=== PATIENT | male | born 1990 | race Caucasian/White ===

== ENCOUNTER 2019-05-12 18:36 | Emergency (ER) | payer SELFPAY ==
[2019-05-12] MEDS ORDERED: NA CHLORIDE 0.9% 1,000 ML ONE ×2 (18:55→20:17)
[2019-05-12 19:12] LABS: Absolute Lymphocytes (CBC) 2.6 K/uL (0.7-4.9); Basophils % 0.7 % (0-1.3); Hematocrit 44.9 % (39.6-49.0); MPV 8.3 fL (7.6-11.3); RBC Red Blood Cell Count 4.89 M/uL (4.33-5.43)
[2019-05-12 19:13] LABS: Protime INR 1.02
[2019-05-12 19:16] LABS: Urine Blood NEGATIVE (NEG); Urine Glucose NEGATIVE (NEG); Urine Protein NEGATIVE (NEG); Urine Specific Gravity <1.005 (1.005-1.030)
[2019-05-12 19:24] LABS: Urine Bacteria <20 /HPF (NONE SEEN); Urine Culture Reflex Order REFLEXED; Urine RBC <5 /HPF (NONE SEEN)
[2019-05-12 19:27] LABS: Barbiturates NEGATIVE (NEGATIVE); Benzodiazepines NEGATIVE (NEGATIVE); Cocaine NEGATIVE (NEGATIVE); METHAMPHETAM POSITIVE (NEGATIVE); Methadone NEGATIVE (NEGATIVE); Opiates NEGATIVE (NEGATIVE); Phencyclidine NEGATIVE (NEGATIVE); THC Cannibis NEGATIVE (NEGATIVE)
--- NOTE | 2019-05-12 19:29 | RAD REPORT ---
EXAM DESCRIPTION: RAD - Chest Single View - 05/12/2019 7:05 pm CLINICAL HISTORY: Shortness of breath COMPARISON: None. TECHNIQUE: AP portable chest image was obtained 1901 hours . FINDINGS: Lungs are clear. Heart and vasculature are normal. No measurable pleural effusion and no p neumothorax. No acute bony abnormality seen. No acute aortic findings suspected. IMPRESSION: No acute cardiopulmonary process.
[2019-05-12 19:31] LABS: ALT/SGPT 37 U/L (12-78); AST/SGOT 17 U/L (15-37); Albumin 3.7 g/dL (3.4-5.0); Alkaline Phosphatase 47 U/L (45-117); BUN Blood Urea Nitrogen 12 mg/dL (7-18); Bicarbonate 23 mmol/L (21-32); Bilirubin Direct 0.2 mg/dL (0-0.2); Bilirubin Total 0.5 mg/dL (0.2-1.0); Glucose Level 100 mg/dL (74-106); NT PRO-BNP 41 pg/mL (<125); Potassium 3.8 mmol/L (3.5-5.1); Protein, Total 7.1 g/dL (6.4-8.2); Sodium Level 143 mmol/L (136-145); Troponin (Emerg Dept Use Only) < 0.02 ng/mL (0.0-0.045)
[2019-05-12] MEDS ORDERED: ALBUTEROL 2.5 MG/3 ML NEB SOL ONE (20:38)
[2019-05-12] MEDS ORDERED: IPRATROPIUM BROM 0.5MG/2.5ML ONE (20:38)
--- NOTE | 2019-05-12 21:41 | ER ---
Nurse's Notes [facility] Name: Ruben Branch Age: 29 yrs Sex: Male : 1990 Arrival Date: 05/12/2019 Time: 18:39 Bed 24 Private MD: Diagnosis: Adverse effect of amphetamines;Shortness of breath;Dizziness and giddiness Presentation: 05/12 18:47 Presenting complaint: EMS states: he feels like an electric shock in both legs, mg2 dizziness, shortness of breath , he had meth and marijuana 2 days ago. BGL- 132 mg/dl. Transition of care: patient was not received from another setting of care. Onset of symptoms was May 11, 2019. Risk Assessment: Do you want to hurt yourself or someone else? Patient reports no desire to harm self or others. Initial Sepsis Screen: Does the patient meet any 2 criteria? No. Patient's initial sepsis screen is negative. Does the patient have a suspected source of infection? No. Patient's initial sepsis screen is negative. Care prior to arrival: None. 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 - Social history:: Smoking status: Patient uses tobacco products, smokes one pack cigarettes per day. Patient uses street drugs, marijuana, Methamphetamine (Meth) Patient/guardian denies using alcohol. - Ebola Screening: : No symptoms or risks identified at this time. Screenin:52 Abuse screen: Denies threats or abuse. Denies injuries from another. Nutritional mg2 screening: No deficits noted. Tuberculosis screening: No symptoms or risk factors identified. Fall Risk IV access (20 points). Assessment: 19:15 General: Appears in no apparent distress. comfortable, Behavior is calm, cooperative. mg2 Pain: Denies pain. Neuro: Level of Consciousness is awake, alert, obeys commands, Oriented to person, place, time, situation. Neuro: Reports dizziness. Cardiovascular: Capillary refill < 3 seconds Patient's skin is warm and dry. Respiratory: Airway is patent Respiratory effort is even, unlabored, Respiratory pattern is regular, symmetrical. Respiratory: Reports shortness of breath. GI: No signs and/or symptoms were reported involving the gastrointestinal system. : No signs and/or symptoms were reported regarding the genitourinary system. EENT: No deficits noted. Derm: Skin is intact, is healthy with good turgor, Skin is pink, warm \T\ dry. normal. Musculoskeletal: Circulation, motion, and sensation intact. Capillary refill < 3 seconds. Vital Signs: 18:49 BP 123 / 73; Pulse 114; Resp 18; Temp 98.3(O); Pulse Ox 98% on R/A; Weight 127.01 kg; mg2 Height 6 ft. 2 in. (187.96 cm); Pain 0/10; 20:15 BP 126 / 80; Pulse 101; Resp 18; Pulse Ox 100% on R/A; mg2 21:27 BP 122 / 78; Pulse 92; Resp 18; Pulse Ox 100% on R/A; mg2 18:49 Body Mass Index 35.95 (127.01 kg, 187.96 cm) mg2 ED Course: 18:39 Patient arrived in ED. mg2 18:43 Sam Hinojosa PA is PHCP. cp 18:43 Sam Peoples MD is Attending Physician. cp 18:49 Triage completed. mg2 18:51 Arm band placed on. mg2 18:52 Tino Woods, SIMONE is Primary Nurse. mg2 18:52 No provider procedures requiring assistance completed. mg2 19:00 Inserted saline lock: 20 gauge in left forearm, using aseptic technique. Blood mg2 collected. 19:07 XRAY Chest (1 view) In Process Unspecified. EDMS 19:16 Patient has correct armband on for positive identification. lobby concierge on. Pulse mg2 ox on. NIBP on. Door closed. Warm blanket given. 21:52 IV discontinued, intact, bleeding controlled, No redness/swelling at site. Pressure mg2 dressing applied. Administered Medications: 19:08 Drug: NS 0.9% 1000 ml Route: IV; Rate: 1 bolus; Site: left antecubital; mg2 21:51 Follow up: Response: No adverse reaction; IV Status: Completed infusion; IV Intake: mg2 1000ml 20:29 Drug: NS 0.9% 1000 ml Route: IV; Rate: 1 bolus; Site: left forearm; mg2 21:51 Follow up: Response: No adverse reaction; IV Status: Completed infusion; IV Intake: mg2 1000ml 20:39 Drug: AtroVENT Aerosol 0.5 mg Route: Inhalation; mg2 21:50 Follow up: Response: No adverse reaction; Marked relief of symptoms mg2 20:40 Drug: Albuterol 2.5 mg Route: Inhalation; mg2 21:50 Follow up: Response: No adverse reaction; Marked relief of symptoms mg2 Intake: 21:51 IV: 1000ml; Total: 1000ml. mg2 21:51 IV: 1000ml; Total: 2000ml. mg2 Outcome: 21:40 Discharge ordered by . cp 21:52 Discharged to home ambulatory. mg2 21:52 Condition: stable 21:52 Discharge instructions given to patient, Instructed on discharge instructions, follow up and referral plans. medication usage, Demonstrated understanding of instructions, follow-up care, medications, Prescriptions given X 1. 21:53 Patient left the ED. mg2 Signatures: Dispatcher [employer] EDMS Sam Hinojosa PA PA cp [place], Michele RN RN mg2
--- NOTE | 2019-05-12 21:41 | EDPHYS ---
Physician Documentation [facility] Name: Ruben Branch Age: 29 yrs Sex: Male : 1990 Arrival Date: 05/12/2019 Time: 18:39 Bed 24 Private MD: ED Physician Sam Peoples HPI: 05/12 19:00 This 29 yrs old Male presents to ER via EMS with complaints of dizziness, cp shortness of breath. 19:00 The patient has shortness of breath with light activity. cp 19:00 Onset: The symptoms/episode began/occurred today. Duration: The symptoms are cp continuous. Associated signs and symptoms: Pertinent positives: dizziness, electric shock in legs, Pertinent negatives: chest pain, productive cough, fever, hemoptysis, visual changes. Severity of symptoms: in the emergency department the symptoms are unchanged despite home interventions. Patient admits to snorting methamphetamine yesterday. 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 - Social history:: Smoking status: Patient uses tobacco products, smokes one pack cigarettes per day. Patient uses street drugs, marijuana, Methamphetamine (Meth) Patient/guardian denies using alcohol. - Ebola Screening: : No symptoms or risks identified at this time. ROS: 19:05 Constitutional: Negative for body aches, chills, fever, poor PO intake. cp 19:05 Eyes: Negative for injury, pain, redness, and discharge. cp 19:05 ENT: Negative for drainage from ear(s), ear pain, sore throat, difficulty swallowing, difficulty handling secretions. 19:05 Cardiovascular: Negative for chest pain, edema, palpitations. 19:05 Respiratory: Positive for shortness of breath, Negative for cough, wheezing. 19:05 Abdomen/GI: Negative for abdominal pain, nausea, vomiting, and diarrhea, black/tarry stool, rectal bleeding. 19:05 Skin: Negative for cellulitis, rash. 19:05 Neuro: Positive for dizziness, Negative for altered mental status, numbness, syncope, weakness. 19:05 All other systems are negative. cp Exam: 18:58 ECG was reviewed by the Attending Physician. cp 19:10 Constitutional: The patient appears in no acute distress, alert, non-diaphoretic, cp non-toxic, well developed, well nourished, obese. 19:10 Head/Face: Normocephalic, atraumatic. cp 19:10 Eyes: Periorbital structures: appear normal, Conjunctiva: normal, Sclera: no appreciated abnormality, Lids and lashes: appear normal, bilaterally. 19:10 ENT: External ear(s): are unremarkable, Nose: is normal, Mouth: Lips: moist, Oral mucosa: pink and intact, moist, Posterior pharynx: is normal, airway is patent, no erythema, no exudate. 19:10 Chest/axilla: Inspection: normal, Palpation: is normal, no crepitus, no tenderness. 19:10 Cardiovascular: Rate: tachycardic, Rhythm: regular, Heart sounds: murmur, not appreciated, Edema: is not appreciated, JVD: is not appreciated. 19:10 Respiratory: the patient does not display signs of respiratory distress, Respirations: normal, no use of accessory muscles, no retractions, no splinting, no tachypnea, labored breathing, is not present, Breath sounds: are clear throughout, no decreased breath sounds, no stridor, no wheezing. 19:10 Abdomen/GI: Inspection: abdomen appears normal, Palpation: abdomen is soft and non-tender, in all quadrants. 19:10 Back: pain, is absent, ROM is normal. 19:10 Musculoskeletal/extremity: DVT Exam: No signs of deep vein thrombosis. 19:10 Skin: no rash present. 19:10 Neuro: Orientation: to person, place \T\ time. Mentation: is normal, Cerebellar function: is grossly normal, Motor: moves all fours, strength is normal, Sensation: no obvious gross deficits. Vital Signs: 18:49 BP 123 / 73; Pulse 114; Resp 18; Temp 98.3(O); Pulse Ox 98% on R/A; Weight 127.01 kg; mg2 Height 6 ft. 2 in. (187.96 cm); Pain 0/10; 20:15 BP 126 / 80; Pulse 101; Resp 18; Pulse Ox 100% on R/A; mg2 21:27 BP 122 / 78; Pulse 92; Resp 18; Pulse Ox 100% on R/A; mg2 18:49 Body Mass Index 35.95 (127.01 kg, 187.96 cm) mg2 MDM: 18:44 Patient medically screened. slime 19:00 Differential diagnosis: Anxiety Reaction asthma, Bronchitis pneumonia, Pneumothorax cp pulmonary edema, Pulmonary Embolism reactive airway disease, Unstable Angina. 21:40 Data reviewed: vital signs, nurses notes, lab test result(s), EKG, radiologic studies, cp plain films, and as a result, I will discharge patient. 21:40 Test interpretation: by ED physician or midlevel provider: ECG, plain radiologic cp studies. Counseling: I had a detailed discussion with the patient and/or guardian regarding: the historical points, exam findings, and any diagnostic results supporting the discharge/admit diagnosis, lab results, radiology results, to return to the emergency department if symptoms worsen or persist or if there are any questions or concerns that arise at home. Response to treatment: the patient's symptoms have markedly improved after treatment, and as a result, I will discharge patient. 05/12 18:47 Order name: Urine Microscopic Only cp 05/12 18:47 Order name: Basic Metabolic Panel cp 05/12 18:47 Order name: CBC with Diff cp 05/12 18:47 Order name: LFT's; Complete Time: 20:04 cp 05/12 18:47 Order name: Magnesium; Complete Time: 20:04 cp 05/12 18:47 Order name: NT PRO-BNP; Complete Time: 20:04 cp 05/12 18:47 Order name: PT-INR; Complete Time: 20:04 cp 05/12 18:47 Order name: Troponin (emerg Dept Use Only); Complete Time: 20:04 cp 05/12 18:49 Order name: Urine Microscopic Only; Complete Time: 20:04 EDMS 05/12 20:56 Interpretation: Normal except: UWBC 5-10. cp 05/12 18:49 Order name: Basic Metabolic Panel; Complete Time: 20:04 EDMS 05/12 20:56 Interpretation: Normal except: CL 110; CRE 1.52; GFR 54. cp 05/12 18:49 Order name: CBC with Automated Diff; Complete Time: 20:04 EDMS 05/12 19:08 Order name: UDS; Complete Time: 20:04 mg2 05/12 20:04 Interpretation: Normal except: METHAMPHETAMINE POSITIVE. cp 05/12 19:12 Order name: Urine Dipstick--Ancillary (enter results); Complete Time: 20:04 ar5 05/12 20:56 Interpretation: Normal except: UESTR TRACE. 05/12 19:30 Order name: Urine Culture EDMS 05/12 18:47 Order name: XRAY Chest (1 view); Complete Time: 20:04 cp 05/12 18:47 Order name: EKG; Complete Time: 18:50 cp 05/12 18:47 Order name: Cardiac monitoring; Complete Time: 19:10 05/12 18:47 Order name: EKG - Nurse/Tech; Complete Time: 19:10 05/12 18:47 Order name: IV Saline Lock; Complete Time: 19:10 05/12 18:47 Order name: Labs collected and sent; Complete Time: 19:10 cp 05/12 18:47 Order name: O2 Per Protocol; Complete Time: 19:10 05/12 18:47 Order name: O2 Sat Monitoring; Complete Time: 19:10 cp EC:58 Rate is 108 beats/min. Rhythm is regular. WI interval is normal. QRS interval is cp normal. QT interval is normal. Interpreted by me. Reviewed by me. Administered Medications: 19:08 Drug: NS 0.9% 1000 ml Route: IV; Rate: 1 bolus; Site: left antecubital; mg2 21:51 Follow up: Response: No adverse reaction; IV Status: Completed infusion; IV Intake: mg2 1000ml 20:29 Drug: NS 0.9% 1000 ml Route: IV; Rate: 1 bolus; Site: left forearm; mg2 21:51 Follow up: Response: No adverse reaction; IV Status: Completed infusion; IV Intake: mg2 1000ml 20:39 Drug: AtroVENT Aerosol 0.5 mg Route: Inhalation; mg2 21:50 Follow up: Response: No adverse reaction; Marked relief of symptoms mg2 20:40 Drug: Albuterol 2.5 mg Route: Inhalation; mg2 21:50 Follow up: Response: No adverse reaction; Marked relief of symptoms mg2 Disposition: 05/13 09:14 Co-signature as Attending Physician, Sam Peoples MD I agree with the assessment and slime plan of care. Disposition: 05/12/19 21:40 Discharged to Home. Impression: Adverse effect of amphetamines, Shortness of breath, Dizziness and giddiness. - Condition is Stable. - Discharge Instructions: Shortness of Breath, Stimulant Use Disorder-Methamphetamines, Aspirin and Your Heart. - Prescriptions for Albuterol Sulfate 90 mcg/actuation - inhale 1-2 puff by INHALATION route every 4-6 hours; 1 Inhaler. - Medication Reconciliation Form, Thank You Letter, Antibiotic Education, Prescription Opioid Use form. - Follow up: Private Physician; When: 1 - 2 days; Reason: Worsening of condition. - Problem is new. - Symptoms have improved. Signatures: Dispatcher [employer] EDSam Otero MD MD cha Page, Corey PA PA cp Tino Woods RN RN mg2 Corrections: (The following items were deleted from the chart) 05/12 21:40 21:40 05/12/2019 21:40 Discharged to Home. Impression: Adverse effect of amphetamines; cp Shortness of breath. Condition is Stable. Forms are Medication Reconciliation Form, Thank You Letter, Antibiotic Education, Prescription Opioid Use. Follow up: Private Physician; When: 1 - 2 days; Reason: Worsening of condition. Problem is new. Symptoms have improved. cp 21:53 21:40 05/12/2019 21:40 Discharged to Home. Impression: Adverse effect of amphetamines; mg2 Shortness of breath; Dizziness and giddiness. Condition is Stable. Discharge Instructions: Shortness of Breath, Stimulant Use Disorder-Methamphetamines, Aspirin and Your Heart. Prescriptions for Albuterol Sulfate 90 mcg/actuation - inhale 1-2 puff by INHALATION route every 4-6 hours; 1 Inhaler. and Forms are Medication Reconciliation Form, Thank You Letter, Antibiotic Education, Prescription Opioid Use. Follow up: Private Physician; When: 1 - 2 days; Reason: Worsening of condition. Problem is new. Symptoms have improved. cp
--- NOTE | 2019-05-13 15:48 | EKG ---
Test Date: 2019-05-12 Test Time: 18:50:21 Cylinder Block Mechanic: SAMUELT MEASUREMENT RESULTS: Intervals: Rate: 108 IA: 134 QRSD: 82 QT: 336 QTc: 450 [place]: P: 59 IA: 134 QRS: 63 T: 30 INTERPRETIVE STATEMENTS: Sinus tachycardia Possible Anterior infarct, age undetermined Abnormal ECG No previous ECG available for comparison Electronically Signed On 05-13-19 15:47:09 CDT by Bogdan Hathaway
== END 2019-05-12 21:53 | disposition home or self-care (01) ==
LOC: ER 18:36
DX: R42 Dizziness and giddiness (principal); T43.625A Adverse effect of amphetamines, initial encounter; Y92.9 Unspecified place or not applicable; F17.210 Nicotine dependence, cigarettes, uncomplicated
CPT/HCPCS: 36415; 71045; 80048; 80076; 80307; 81003; 81015; 83735; 83880; 84484; 85025; 85610; 87086; 87088; 93005; 96360; 96361; 99285; J7030